=== PATIENT | male | born 1955 | race Caucasian/White ===

== ENCOUNTER 2018-07-11 15:10 | Emergency (ER) | payer BC, OTHER ==
[2018-07-11] MEDS ORDERED: Tetan/Diph/Pertus SYR(Tdap)* 0.5 ML SYR(BOOSTRIX) use SYR IM ONE (15:12)
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
[2018-07-11 15:23] VITALS: BP 125/84
[2018-07-11] MEDS ORDERED: Lidocaine 2% PF * 5 ML VIAL INJ ONE (15:33)
[2018-07-11] MEDS ORDERED: Lidocaine 2% PF * 5 ML VIAL ONE (15:35)
== END 2018-07-11 16:00 | disposition home or self-care (01) ==
LOC: UCEAST 15:10
DX: W22.8XXA Striking against or struck by other objects, initial encounter (principal); Y93.89 Activity, other specified; Y92.9 Unspecified place or not applicable; S01.81XA Laceration without foreign body of other part of head, initial encounter; I10 Essential (primary) hypertension
CPT/HCPCS: 12011; 99211; G0463